=== PATIENT | female | born 1945 | race Hispanic/Latino ===

== ENCOUNTER → 2017-10-12 | Day surgery (SDC) | payer MEDICARE ==
[2017-10-11 13:16] LABS: BASOPHILS % 0.6 % (0.0-1.0); EOSINOPHILS # (AUTO) 0.2 (0.0-0.4); EOSINOPHILS % 3.3 % (0.0-6.0); HEMATOCRIT 40.8 % (34.2-44.1); HEMOGLOBIN 13.8 g/dL (12.0-16.0); LYMPHOCYTES # (AUTO) 1.5 (1.0-3.2); LYMPHOCYTES % 22.6 % (18.0-39.1); MEAN CORPUSCULAR HEMOGLOBIN 30.1 pg (28-32); MEAN CORPUSCULAR HGB CONC 33.8 g/dL (31-35); MEAN CORPUSCULAR VOLUME 88.9 fL (81-99); MONOCYTES # (AUTO) 0.5 (0.2-0.8); MONOCYTES % 6.8 % (4.4-11.3); NEUTROPHILS # (AUTO) 4.4 (2.1-6.9); NEUTROPHILS % 66.5 % (38.7-80.0); PLATELET COUNT 257 x10e3/uL (140-360); RED BLOOD COUNT 4.59 x10e6/uL (3.6-5.1)
[~2017-10-12] MED LIST: LIDOCAINE HCL 2% LOCAL INJ 5 ML SDV VIAL INJ ONE; LOSARTAN POTAS100 MG PO; MELOXICAM7.5 MG PO; METFORMIN HCL500 MG PO; MIDAZOLAM HCL 2 MG/2 ML VIAL ONE; PRAVASTATIN SOD40 MG PO; PROPOFOL IV EMULSION 10 MG/ML 20 ML VIAL ONE; ULTRAM50 MG PO
== END | disposition home or self-care (01) ==
LOC: OR 08:41
PROVIDERS: ATTEND Internal Medicine Gastroenterology
DX: Z12.11 Encounter for screening for malignant neoplasm of colon (principal); K63.5 Polyp of colon; K57.30 Diverticulosis of large intestine without perforation or abscess without bleeding; K64.8 Other hemorrhoids; E11.9 Type 2 diabetes mellitus without complications; I10 Essential (primary) hypertension; E66.9 Obesity, unspecified; Z01.810 Encounter for preprocedural cardiovascular examination; Z01.812 Encounter for preprocedural laboratory examination; Z68.34 Body mass index [BMI] 34.0-34.9, adult
CPT/HCPCS: 36415; 45380; 85025; 88305; 93005; J2001; J2250; 45385

== ENCOUNTER → 2017-11-17 | Outpatient (CLI) | payer MEDICARE ==
[~2017-11-17] MED LIST changes: -LIDOCAINE HCL 2% LOCAL INJ 5 ML SDV VIAL INJ ONE; -MIDAZOLAM HCL 2 MG/2 ML VIAL ONE; -PROPOFOL IV EMULSION 10 MG/ML 20 ML VIAL ONE
--- NOTE | 2017-11-17 13:36 | Diagnostic Imaging Report ---
PROCEDURE:X-RAY LEFT SHOULDER, COMPLETE COMPARISON:None. INDICATIONS:FALL, LEFT SHOULDER PAIN FINDINGS: There are no fractures, dislocations, lytic or blastic lesions. The bones are well-mineralized. The soft-tissues are unremarkable. CONCLUSION: No acute radiographic abnormality. Dictated by: Niraj Fuentes M.D. on 11/17/2017 at 13:46 Electronically approved by: Niraj Fuentes M.D. on 11/17/2017 at 13:46
--- NOTE | 2017-11-17 13:37 | Diagnostic Imaging Report ---
PROCEDURE:X-RAY LEFT HUMERUS, TWO OR MORE VIEWS COMPARISON:None. INDICATIONS:FALL, LEFT HUMERUS PAIN FINDINGS: There are no fractures, dislocations, lytic or blastic lesions. The bones are well-mineralized. The soft-tissues are unremarkable. CONCLUSION: No acute radiographic abnormality. Dictated by: Niraj Fuentes M.D. on 11/17/2017 at 13:46 Electronically approved by: Niraj Fuentes M.D. on 11/17/2017 at 13:46
--- NOTE | 2017-11-17 13:38 | Diagnostic Imaging Report ---
PROCEDURE:X-RAY LEFT ELBOW, COMPLETE COMPARISON:None. INDICATIONS:FALL, LEFT ELBOW PAIN FINDINGS: There are no fractures, dislocations, lytic or blastic lesions. The bones are well-mineralized. The soft-tissues are unremarkable. CONCLUSION: No acute radiographic abnormality. Dictated by: Niraj Fuentes M.D. on 11/17/2017 at 13:48 Electronically approved by: Niraj Fuentes M.D. on 11/17/2017 at 13:48
== END ==
LOC: RAD 12:31
PROVIDERS: ATTEND Internal Medicine
DX: S47.2XXA Crushing injury of left shoulder and upper arm, initial encounter (principal)

== ENCOUNTER 2018-01-05 08:56 | Outpatient (RCR) | payer MEDICARE | END 2018-01-07 | LOC: PT 08:56 | PROVIDERS: ATTEND Family Medicine | DX: M25.512 Pain in left shoulder (principal) | CPT/HCPCS: 97010; 97110 ×8; 97116; 97139; 97161; G8984 ×2; G8985 ×2 ==

== ENCOUNTER 2018-01-26 09:00 | Outpatient (RCR) | payer MEDICARE | END 2018-02-06 | LOC: PT 09:00 | PROVIDERS: ATTEND Family Medicine | DX: M25.512 Pain in left shoulder (principal); M62.81 Muscle weakness (generalized) | CPT/HCPCS: 97010 ×5; 97110 ×6; 97139; G8985; G8986 ==

== ENCOUNTER 2023-09-06 09:56 | Outpatient (RCR) | payer MEDICARE | END 2023-09-08 | LOC: PT 09:56 | PROVIDERS: ATTEND Physical Medicine & Rehabilitation | DX: M54.16 Radiculopathy, lumbar region (principal) ==